=== PATIENT | female | born 1930 | race Caucasian/White ===

== ENCOUNTER 2018-10-09 16:32 | Inpatient (IN) | payer MEDICARE, MEDICAID ==
[~2018-10-09] VITALS: Ht 157.5 cm; Wt 100.7 kg
[2018-10-09 18:18] LABS: BASOPHILS % 0.9 % (0.0-2.0); EOSINOPHILS % 1.4 % (0.0-5.0); HEMATOCRIT. 39.6 % (36.0-48.0); HEMOGLOBIN. 13.3 g/dL (12.0-16.0); LYMPHOCYTES % 13.1 % (20.0-50.0); MEAN CORPUSCULAR HEMOGLOBIN 29.9 pg (28.0-32.0); MEAN CORPUSCULAR VOLUME 89.2 fL (81.0-99.0); MEAN PLATELET VOLUME 9.4 fl (7.4-10.4); MONOCYTES % 10.6 % (2.0-8.0); PLATELET 174 x1000/uL (130-400); RED BLOOD CELL COUNT 4.45 mill/uL (4.2-5.4); RED CELL DISTRIBUTION WIDTH 14.4 % (11.6-14.6)
[2018-10-09 18:21] LABS: CHLORIDE 104 mEq/L (98-107)
[2018-10-09 18:35] LABS: INR 1.1; PROTHROMBIN TIME 11.2 sec (9.6-11.0)
[2018-10-09] MEDS ORDERED: BENAZEPRIL 5MG TABLET PO ONE (19:00)
[2018-10-09] MEDS ORDERED: FUROSEMIDE 40MG/4ML VIAL IVP NR (20:30)
[2018-10-09] MEDS ORDERED: TRAMADOL 50MG TABLET PO ONE (21:30)
[2018-10-09 22:44] LABS: CLARITY URINE CLEAR (CLEAR); COLOR URINE YELLOW (YELLOW); KETONES URINE NEGATIVE (NEGATIVE); LEUKOCYTE ESTERASE URINE TRACE (NEGATIVE); NITRITE URINE NEGATIVE (NEGATIVE); OCCULT BLOOD URINE NEGATIVE (NEGATIVE); PH URINE 6.5 (4.5-8.0); PROTEIN URINE NEGATIVE (NEGATIVE); SPECIFIC GRAVITY URINE 1.004 (1.005-1.030); UROBILINOGEN URINE 0.2 E.U./dL (0.2-1.0)
[2018-10-10] MEDS ORDERED: CLONIDINE 0.2MG TABLET PO PRN (00:15)
[2018-10-10 01:10] VITALS: BP 163/65
[2018-10-10] MEDS ORDERED: DOCUSATE SODIUM 250MG CAPSULE PO PRN (02:15)
[2018-10-10] MEDS ORDERED: HYDRALAZINE 20MG/ML VIAL IV PRN (02:15)
[2018-10-10 04:00] VITALS: BP 166/63
[2018-10-10] MEDS: IPRATROPIUM/ALBUTEROL 0.5-3(2.5)MG/3ML NEB HHN SCH ×6 (04:00→23:57)
[2018-10-10] MEDS: MORPHINE SULFATE 2 MG/ML CPJ (NOT FOR IM USE) IV PRN (07:04)
[2018-10-10] MEDS ORDERED: IPRATROPIUM/ALBUTEROL 0.5-3(2.5)MG/3ML NEB HHN PRN (07:30)
[2018-10-10 08:00] VITALS: BP 160/57
[2018-10-10] MEDS ORDERED: PNEUMOCOCCAL 23-VAL P-SAC VAC 0.5 ML IM ONE (08:00)
[2018-10-10] MEDS ORDERED: METOPROLOL TARTRATE 50MG TABLET PO SCH (09:00)
[2018-10-10] MEDS ORDERED: ASPIRIN 325MG EC TABLET PO SCH (09:00)
[2018-10-10] MEDS: LOSARTAN POTASSIUM 50 MG TABLET PO SCH ×2 (09:01→09:02)
[2018-10-10] MEDS ORDERED: LIDOCAINE HCL/PF 1% 2ML VIAL ONE (09:12)
[2018-10-10 11:56] VITALS: BP 135/57
[2018-10-10] MEDS ORDERED: TRAMADOL 50MG TABLET PO NR (13:30)
[2018-10-10] MEDS ORDERED: FURO40TA5 PO (15:16)
[2018-10-10] MEDS ORDERED: LORA10TA7 PO (15:16)
[2018-10-10] MEDS ORDERED: QUIN20TA30 PO (15:16)
[2018-10-10] MEDS ORDERED: ALEN70TA68 PO (15:16)
[2018-10-10] MEDS ORDERED: OXYB5TAB PO (15:16)
[2018-10-10] MEDS ORDERED: MELO-106 PO (15:16)
[2018-10-10] MEDS ORDERED: TIOT18CA3 IH (15:16)
[2018-10-10] MEDS ORDERED: ASPI-1393 MT (15:16)
[2018-10-10] MEDS ORDERED: TCNYC15 TP (15:16)
[2018-10-10] MEDS ORDERED: DOCU-267 PO (15:16)
[2018-10-10] MEDS ORDERED: ALBU18HF2 IH (15:16)
[2018-10-10] MEDS ORDERED: BUDE6.9H INH (15:16)
[2018-10-10] MEDS ORDERED: MISO200T4 PO (15:16)
[2018-10-10] MEDS ORDERED: GABA-529 PO (15:16)
[2018-10-10] MEDS ORDERED: SIMV40TA5 PO (15:16)
[2018-10-10] MEDS ORDERED: BRIM15DR8 OP (15:16)
[2018-10-10] MEDS ORDERED: OMEP20CA5 PO (15:16)
[2018-10-10] MEDS ORDERED: RANI15SY PO (15:17)
[2018-10-10 15:30] LABS: CHLORIDE 102 mEq/L (98-107)
[2018-10-10 15:36] LABS: LDL CHOLESTEROL 63 mg/dL (5-100)
[2018-10-10 15:37] LABS: HDL CHOLESTEROL 70 mg/dL (40-59)
[2018-10-10 16:00] VITALS: BP 117/54
[2018-10-10 16:15] LABS: BG BASE EXCESS 5.5 mmol/L (-2.0-2.0); BG CARBOXYHEMOGLOBIN 0.7 % (0.5-1.5); BG DEOXYHEMOGLOBIN 11.9 % (0.0-5.0); BG FRACTION INSPIRED OXYGEN 21; BG HCO3 ACT 33.8 mmol/L (22.0-26.0); BG METHEMOGLOBIN 0.2 % (0.0-1.5); BG OXYHEMOGLOBIN 87.2 % (94.0-97.0); BG PCO2 66.3 mmHg (35.0-45.0); BG PH 7.325 (7.350-7.450); BG PO2 56.3 mmHg (75.0-100.0); BG SAMPLE SITE RIGHT RADIAL; BG TOTAL HEMOGLOBIN 14.1 g/dL (12.0-18.0); BG VENT MODE ROOM AIR
[2018-10-10] MEDS: AZITHROMYCIN 500 MG TABLET PO SCH (16:36)
[2018-10-10] MEDS: BUDESONIDE 0.5MG/2ML NEB HHN SCH (19:55)
[2018-10-10 20:00] VITALS: BP 122/53
[2018-10-10] MEDS: GUAIFENESIN 600MG ER TABLET PO SCH (21:33)
[2018-10-10] MEDS: METOPROLOL TARTRATE 50MG TABLET PO SCH (21:34)
[2018-10-11] VITALS: BP 145/55
[2018-10-11] MEDS: MORPHINE SULFATE 2 MG/ML CPJ (NOT FOR IM USE) IV PRN ×2 (00:37→08:33)
[2018-10-11 04:00] VITALS: BP 114/54
[2018-10-11] MEDS: IPRATROPIUM/ALBUTEROL 0.5-3(2.5)MG/3ML NEB HHN SCH ×5 (04:14→21:30)
[2018-10-11 07:14] LABS: BASOPHILS % 0.6 % (0.0-2.0); EOSINOPHILS % 1.2 % (0.0-5.0); HEMATOCRIT. 37.9 % (36.0-48.0); HEMOGLOBIN. 12.9 g/dL (12.0-16.0); LYMPHOCYTES % 12.6 % (20.0-50.0); MEAN CORPUSCULAR HEMOGLOBIN 30.2 pg (28.0-32.0); MEAN CORPUSCULAR VOLUME 88.8 fL (81.0-99.0); MEAN PLATELET VOLUME 9.7 fl (7.4-10.4); MONOCYTES % 9.9 % (2.0-8.0); NEUTROPHILS % 75.7 % (40.0-76.0); PLATELET 171 x1000/uL (130-400); RED BLOOD CELL COUNT 4.27 mill/uL (4.2-5.4); RED CELL DISTRIBUTION WIDTH 14.2 % (11.6-14.6)
[2018-10-11 08:00] VITALS: BP 138/57
[2018-10-11] MEDS: AZITHROMYCIN 500 MG TABLET PO SCH (08:31)
[2018-10-11] MEDS: GUAIFENESIN 600MG ER TABLET PO SCH ×2 (08:31→21:04)
[2018-10-11] MEDS: LOSARTAN POTASSIUM 50 MG TABLET PO SCH (08:31)
[2018-10-11] MEDS: METOPROLOL TARTRATE 50MG TABLET PO SCH ×2 (08:32→21:04)
[2018-10-11] MEDS: BUDESONIDE 0.5MG/2ML NEB HHN SCH ×2 (08:40→21:30)
[2018-10-11 12:00] VITALS: BP 161/57
[2018-10-11] MEDS: TRAMADOL 50MG TABLET PO PRN ×2 (12:00→21:05)
[2018-10-11] MEDS ORDERED: ACETAMINOPHEN 325MG TABLET PO PRN (13:00)
[2018-10-11] MEDS ORDERED: FUROSEMIDE 40MG/4ML VIAL IVP SCH (13:45)
[2018-10-11] MEDS: METHYLPREDNISOLONE SOD SUCC 40 MG/ML VIAL IV SCH (15:38)
[2018-10-11] MEDS: CEFTRIAXONE 1 G PREMIX 50 ML IV SCH (15:55)
[2018-10-11 16:00] VITALS: BP 136/46
[2018-10-11 20:00] VITALS: BP 158/72
[2018-10-12] MEDS: IPRATROPIUM/ALBUTEROL 0.5-3(2.5)MG/3ML NEB HHN SCH ×5 (02:26→16:21)
[2018-10-12 04:00] VITALS: BP 155/64
[2018-10-12 06:43] LABS: CHLORIDE 101 mEq/L (98-107)
[2018-10-12 06:46] LABS: BASOPHILS % 0.3 % (0.0-2.0); EOSINOPHILS % 0.1 % (0.0-5.0); HEMATOCRIT. 39.7 % (36.0-48.0); HEMOGLOBIN. 13.4 g/dL (12.0-16.0); LYMPHOCYTES % 12.6 % (20.0-50.0); MEAN CORPUSCULAR HEMOGLOBIN 30.1 pg (28.0-32.0); MEAN PLATELET VOLUME 9.6 fl (7.4-10.4); MONOCYTES % 9.5 % (2.0-8.0); NEUTROPHILS % 77.5 % (40.0-76.0); PLATELET 176 x1000/uL (130-400); RED BLOOD CELL COUNT 4.46 mill/uL (4.2-5.4); RED CELL DISTRIBUTION WIDTH 14.3 % (11.6-14.6)
[2018-10-12 08:00] VITALS: BP 156/55
[2018-10-12] MEDS: AZITHROMYCIN 500 MG TABLET PO SCH (08:32)
[2018-10-12] MEDS: GUAIFENESIN 600MG ER TABLET PO SCH (08:32)
[2018-10-12] MEDS: METOPROLOL TARTRATE 50MG TABLET PO SCH (08:34)
[2018-10-12] MEDS: METHYLPREDNISOLONE SOD SUCC 40 MG/ML VIAL IV SCH (08:35)
[2018-10-12] MEDS: TRAMADOL 50MG TABLET PO PRN (08:52)
[2018-10-12] MEDS ORDERED: FUROSEMIDE 40MG/4ML VIAL IVP SCH (09:00)
[2018-10-12] MEDS ORDERED: LOSARTAN POTASSIUM 50 MG TABLET PO SCH (09:00)
[2018-10-12 09:11] LABS: IMMUNOGLOBULIN A 308 mg/dL (64-422); IMMUNOGLOBULIN G 998 mg/dL (700-1600); IMMUNOGLOBULIN M 31 mg/dL (26-217)
[2018-10-12] MEDS: BUDESONIDE 0.5MG/2ML NEB HHN SCH (09:38)
[2018-10-12] MEDS ORDERED: HYDROCODONE/ACETAMINOPHEN 5/325MG TABLET PO PRN (11:00)
[2018-10-12 12:00] VITALS: BP 133/42
[2018-10-12] MEDS: CEFTRIAXONE 1 G PREMIX 50 ML IV SCH (14:00)
[2018-10-12 16:00] VITALS: BP 134/50
[2018-10-12 16:31] VITALS: BP 134/50
== END 2018-10-12 19:05 | disposition home health service (06) | DRG 73 ==
LOC: ER 16:32 → 5WST 21:50 → EDBEDREQ 21:54 → EDBEDREQTM 21:54 → ENRESERV 22:29
PROVIDERS: ADMIT Internal Medicine; ATTEND Internal Medicine
DX: G90.8 Other disorders of autonomic nervous system (principal); J96.00 Acute respiratory failure, unspecified whether with hypoxia or hypercapnia; E44.1 Mild protein-calorie malnutrition; I31.3 Pericardial effusion (noninflammatory); Z68.41 Body mass index [BMI] 40.0-44.9, adult; I11.0 Hypertensive heart disease with heart failure; S00.03XA Contusion of scalp, initial encounter; S00.12XA Contusion of left eyelid and periocular area, initial encounter; K42.9 Umbilical hernia without obstruction or gangrene; E66.9 Obesity, unspecified; I50.9 Heart failure, unspecified; J45.909 Unspecified asthma, uncomplicated; R91.1 Solitary pulmonary nodule; S09.90XA Unspecified injury of head, initial encounter; E78.5 Hyperlipidemia, unspecified; W07.XXXA Fall from chair, initial encounter; Z96.641 Presence of right artificial hip joint; Y93.89 Activity, other specified; Z98.891 History of uterine scar from previous surgery; Y92.89 Other specified places as the place of occurrence of the external cause; Y99.8 Other external cause status; Z79.899 Other long term (current) drug therapy
CPT/HCPCS: 36415; 36600; 70486; 71045; 71250; 74176; 78306; 80048; 80061; 82375; 82784; 82805; 83036; 84443; 84484; 86334; 86850; 86900; 87077; 87186; 90732; 93005; 93306; 94618; 94640; 96374; 97116; 97162; 99285; A9503; J0360; J0696; J1940; J2270; J2920; J3490; J7050; J7620; J7626